=== PATIENT | female | born 1975 | race Hispanic/Latino ===

== ENCOUNTER → 2019-03-03 | Day surgery (SDC) | payer OTHER ==
[2019-02-28 18:28] LABS: BASOPHILS # (AUTO) 0.1 (0.0-0.1); BASOPHILS % 0.8 % (0.0-1.0); EOSINOPHILS # (AUTO) 0.2 (0.0-0.4); EOSINOPHILS % 2.8 % (0.0-6.0); HEMATOCRIT 38.8 % (34.2-44.1); LYMPHOCYTES # (AUTO) 1.1 (1.0-3.2); LYMPHOCYTES % 16.9 % (18.0-39.1); MEAN CORPUSCULAR HEMOGLOBIN 29.9 pg (28-32); MEAN CORPUSCULAR HGB CONC 33.5 g/dL (31-35); MEAN CORPUSCULAR VOLUME 89.2 fL (81-99); MONOCYTES # (AUTO) 0.3 (0.2-0.8); MONOCYTES % 5.1 % (4.4-11.3); NEUTROPHILS # (AUTO) 4.8 (2.1-6.9); NEUTROPHILS % 73.9 % (38.7-80.0); PLATELET COUNT 221 x10e3/uL (140-360); RED BLOOD COUNT 4.35 x10e6/uL (3.6-5.1); RED CELL DISTRIBUTION WIDTH 12.7 % (11.7-14.4)
--- NOTE | 2019-02-28 18:30 | Diagnostic Imaging Report ---
EXAMINATION: CHEST 2 VIEWS INDICATION: Pre-op. COMPARISON: None FINDINGS: TUBES and LINES: None. LUNGS: Lungs are well inflated. There is no evidence of pneumonia or pulmonary edema. Mild patchy opacity in the medial aspect of the right lower lung, likely atelectasis. PLEURA: No pleural effusion or pneumothorax. HEART AND MEDIASTINUM: The cardiomediastinal silhouette is unremarkable. BONES AND SOFT TISSUES: No acute osseous abnormality. UPPER ABDOMEN: No free air under the diaphragm. IMPRESSION: No acute radiographic abnormality. Signed by: Dr. Nish Feldman MD on 02/28/2019 6:26 PM
[2019-02-28 18:45] LABS: ANION GAP 13.9 mmol/L (8-16); BLOOD UREA NITROGEN 15 mg/dL (7-26); BUN/CREATININE RATIO 20 (6-25); CALCIUM 9.6 mg/dL (8.4-10.2); CARBON DIOXIDE 26 mmol/L (22-29); CHLORIDE 101 mmol/L (98-107); CREATININE, SERUM 0.76 mg/dL (0.57-1.11); EST GLOMERULAR FILTRATION RATE > 60 ML/MIN (60-); GLUCOSE 95 mg/dL (74-118); POTASSIUM 3.9 mmol/L (3.5-5.1); SODIUM 137 mmol/L (136-145)
[~2019-03-03] MED LIST: ACETAMINOPHEN 1000 MG/100 ML 100 ML IV ONE; BACITRACIN 50,000 UNIT VIAL ONE; BUPIVACAINE HCL 0.5% INJ 30 ML VIAL INJ ONE; CEFAZOLIN SOD 1 GM VIAL ONE; DEXAMETHASONE SOD PHOS INJ 4 MG/ML VIAL ONE; FENTANYL CITRATE/PF 100MCG/2 ML INJ ONE; HYDROMORPHONE 2MG/ML 2 MG/ML ML ONE; IRON PO; KETOROLAC TROMETHAMINE 30 MG/ML VIAL ONE; LEVOTHYROXINE50 MCG PO; LIDOCAINE HCL 2% LOCAL INJ 5 ML SDV VIAL INJ ONE; MELATONIN3 MG PO; MIDAZOLAM HCL 2 MG/2 ML VIAL ONE; MORPHINE SULFATE INJ 4 MG/ML INJ 1ML ONE; NEOSTIGMINE 1 MG/ML 10ML VIAL ONE; ONDANSETRON HCL INJ 2MG/ML 2ML 2 MG/ML VIAL ONE; PROPOFOL IV EMULSION 10 MG/ML 20 ML VIAL ONE; SERTRALINE HCL100 MG PO; SEVOFLURANE INHAL SOLN 250 ML PEN BTL ONE; TAMOXIFEN CITRA10 MG PO; ULTRAM50 MG PO; VITAMIN D35000 UNIT PO
--- OUTSIDE RECORDS SUMMARY | 2019-03-03 07:27 | XMS REPORT ---
Author [facility] Address Unknown Phone Unavailable Care Team Providers Care Database Admin Name Role Phone LIOR CASTAÑEDA Unavailable Unavailable Payers Payer Name Policy Type Policy Number Effective Date Expiration Date Problems This patient has no known problems. Allergies, Adverse Reactions, Alerts Allergy Name Allergy Type Status Severity Reaction(s) Onset Date Inactive Date Treating Clinician Comments No Known Allergies DA Active U 2019-02-23 00:00:00 No Known Allergies DA Active U 2016-02-07 00:00:00 Medications This patient has no known medications. Results Test Description Test Time Test Comments Text Results Atomic Results Result Comments CHEST 2 VIEWS 2019-02-28 18:24:00 [place] [address] Patient Name: HADLEY RUBIO MR #: [id number] : 1975 Age/Sex: 43/F Req #: [id number] Adm Physician: Ordered by: LIOR CASTAÑEDA DPMinoo Report #: [id number] Location: OR Room/Bed: Procedure: [id number] DX/CHEST 2 VIEWS Exam Date: 02/28/19 Exam Time: 1635 REPORT STATUS: Signed EXAMINATION: CHEST 2 VIEWS INDICATION: Pre-op. COMPARISON: None FINDINGS: TUBES and LINES: None. LUNGS: Lungs are well inflated. There is no evidence of pneumonia or pulmonary edema. Mild patchy opacity in the medial aspect of the right lower lung, likely atelectasis. PLEURA: No pleural effusion or pneumothorax. HEART AND MEDIASTINUM: The cardiomediastinal silhouette is unremarkable. BONES AND SOFT TISSUES: No acute osseous abnormality. UPPER ABDOMEN: No free air under the diaphragm. IMPRESSION: No acute radiographic abnormality. Signed by: Dr. Camille Cruz MD on 02/28/2019 6:26 PM Dictated By: CAMILLE CRUZ MD 25 Transcribed By: JR on 02/28/191825 COPY TO: LIOR CASTAÑEDA DPM - XR ANKLE 3 + V LT 2019-02-23 03:15:00 FAX: Rush Edmondson [phone] [place]: St: REG FAX: Arturo Sotomayor NP [phone] FAX: Sukhwinder Malhotra MD [phone] Name: HADLEY RUBIO [facility] : 1975 Age/S: 43/F [address] [place] [address] Unit #: [id number] Loc: [place] [address] Phys: Arturo Sotomayor NP Acct: [id number] Dis Date: Status: REG ER PHONE #: [phone] Exam Date: 02/23/2019 0302 FAX #: [phone] Reason: Post reduction EXAMS: CPT CODE: [id number] XR ANKLE 3 + V LT 05489 Left ankle, 2 views dated 02/23/2019. HISTORY: Post reduction. AP and lateral views of the left ankle are correlated with the previous left ankle series dated 02/23/2019. The images were obtained through a splint, diminishing bone detail. Since the prior study there has been interval reduction of the talar dislocation. The fractures of the distal left fibular metaphysis and posterior left tibial malleolus remain mildly displaced however fracture alignment has significantly improved when compared to the preceding study. IMPRESSION: 1. Interval reduction of the fracture dislocation of the left ankle. SL: 131 at 0315 Reported and signed by: Chuy Garcia M.D. CC: SADE CASTANO M.D. ; Arutro Sotomayor NP; Sukhwinder Laureano MD Technologist: AGAPITO Farooq) Trnscrd Date/Time/By: 02/23/2019 (314) : By: SheliaM Orig Print D/T: S: 02/23/2019 (317) PAGE 1 Signed Report - XR ANKLE 3 + V LT 2019-02-23 01:54:00 FAX: Rush Edmondson [phone] [place]: St: REG FAX: Arturo Sotomayor NP [phone] Name: HADLEY RUBIO [facility] : 1975 Age/S: 43/F [address] [place] [address] Unit #: [id number] Loc: [place] [address] Phys: Arturo Sotomayor NP Acct: [id number] Dis Date: Status: REG ER PHONE #: [phone] Exam Date: 02/23/2019 0149 FAX #: [phone] Reason: Slip and fall, L ankle pain EXAMS: CPT CODE: [id number] XR ANKLE 3 + V LT 20033 Left ankle, 3 views dated 02/23/2019. HISTORY: Posttraumatic left ankle pain. Tripped going down the stairs. AP, lateral and oblique views of the left ankle demonstrate acute displaced fractures of the distal left fibular metaphysis and the posterior left tibial malleolus with dorsal dislocation of the talus. No acute fractures of the talus are identified. A large bone spur is noted calcaneal insertion the plantar fascia. No acute abnormalities of the calcaneus are stated talar joint are identified. IMPRESSION: 1. Acute fracture dislocation of the left ankle. SL: 131 Electronically Si gned by Klever Garcia on 02/23/2019 at 0154 Reported and signed by: Chuy Garcia M.D. CC: SADE CASTANO M.D. ; Arturo Sotomayor NP Technologist: RT Oseas(Natanael) Trnscrd Date/Time/By: 02/23/2019 (0154) : By: Marilee Orig Print D/T: S: 02/23/2019 (0157) PAGE 1 Signed Report
[2019-03-03 13:15] VITALS: BP 123/77
--- NOTE | 2019-03-04 02:09 | Operative Report ---
DATE OF PROCEDURE: 03/03/2019 SURGEON: Keon Bee DPM PREOPERATIVE DIAGNOSIS: Bimalleolar fracture of the left ankle, tibia and fibula. POSTOPERATIVE DIAGNOSIS: Bimalleolar fracture of the left ankle, tibia and fibula. TITLE OF OPERATION: Open reduction with internal fixation of the left ankle, tibia and fibula. ANESTHESIA: General endotracheal. HEMOSTASIS: A left thigh tourniquet at 350 mmHg to create hemostasis. PROCEDURE IN DETAIL: The patient was taken to the operating room in a mildly sedative state and placed on the operating table in supine position. Following induction of general anesthetic, left lower extremity was elevated to 60 degrees to exsanguinate before inflating the pneumatic tourniquet to 350 mmHg to create hemostasis. The left lower extremity was placed on the operating table prior to performing the following procedure. Procedure #1, open reduction and internal fixation of the left ankle and fibula with syndesmotic screw, both tibia and fibula. An approximate 6 cm lateral incision was placed along the lateral fibula. Care was taken to identify and retract all vital structures encountered. The neurovascular structures were identified and retracted from harm's way. The fractured fibula was noted to be in an oblique fashion just proximal to the talar dome and extending posteriorly along the posterior lateral aspect of the fibula approximately 4 cm. Posterior sag sign was noted. The ankle was very unstable and easily dislocatable do not only to the fibular fracture, but also fracture of the posterior malleolus of the tibia. Under fluoroscopy, the ankle was manipulated into its appropriate position. A clamp was used to reapproximate the longitudinal and transverse fracture of the fibula in a spiral oblique fashion. A lag screw was used for initial fixation and this was a 4-0 cancellous screw done under fluoroscopy as well. A long fibular plate was then applied to the lateral aspect of the fibula with 3 screws distal to the fracture and 4 screws proximal to the fracture. This having been accomplished, a fluoroscopic evaluation was performed, it was noted that not only did the fibula aligned well, but the posterior malleolus was in good position. Decision was made to fixate the tibia solidly as well. A separate stab incision was placed and the screw was placed through the plate from lateral to medial, grabbing the tibia bicortically. Posterior malleolus was noted to be properly positioned and adequately stable as well. The area was irrigated with copious amounts of sterile saline solution. The deep closure with 3-0 Vicryl, subcutaneous with 4-0 Vicryl and skin closed with 4-0nylon. When the ankle was put through its appropriate range of motion, it was noted that the syndesmosis between tibia and fibula were adequately reduced with the transmalleolar screw. Full ankle joint dorsiflexion was available and there were no complications, this was done with a nonlocking screw where as most of the screws were locking in nature. Posterior splint was applied and released the pneumatic thigh tourniquet, showed a normal hyperemic flush to all digits of the left foot. The patient left the operating room with vital signs stable in apparent satisfactory condition, having tolerated both anesthetic and procedure very well. SHANNON Duenas/ELBA /[id number]
== END | disposition home or self-care (01) ==
LOC: OR 07:19
PROVIDERS: ATTEND Podiatrist Foot Surgery
DX: S82.842A Displaced bimalleolar fracture of left lower leg, initial encounter for closed fracture (principal); C50.919 Malignant neoplasm of unspecified site of unspecified female breast; G47.33 Obstructive sleep apnea (adult) (pediatric); F32.9 Major depressive disorder, single episode, unspecified; F41.9 Anxiety disorder, unspecified; X58.XXXA Exposure to other specified factors, initial encounter; Z01.810 Encounter for preprocedural cardiovascular examination; Z01.812 Encounter for preprocedural laboratory examination; Z01.818 Encounter for other preprocedural examination
CPT/HCPCS: 27814; 36415; 71046; 80048; 84702; 85025; 93005; C1713 ×6; J0131; J0690; J1100; J1170; J1885; J2001; J2250; J2270; J2405; J2704; J2710

== ENCOUNTER → 2019-09-23 | Day surgery (SDC) | payer OTHER ==
[~2019-09-23] MED LIST changes: -ACETAMINOPHEN 1000 MG/100 ML 100 ML IV ONE; -BACITRACIN 50,000 UNIT VIAL ONE; -CEFAZOLIN SOD 1 GM VIAL ONE; +CEFAZOLIN SOD 1 GM/NS 50ML 100 ML IV ONE; -HYDROMORPHONE 2MG/ML 2 MG/ML ML ONE; -MORPHINE SULFATE INJ 4 MG/ML INJ 1ML ONE
[2019-09-23 15:05] VITALS: BP 107/71
--- NOTE | 2019-09-24 04:18 | Operative Report ---
DATE OF PROCEDURE: 09/23/2019 SURGEON: Keon Bee DPM ROOM NUMBER: [facility]. PREOPERATIVE DIAGNOSIS: Complication with hardware transmalleolar syndesmotic screw left foot. POSTOPERATIVE DIAGNOSIS: Complication with hardware transmalleolar syndesmotic screw left foot. TITLE OF OPERATION: Removal of the syndesmotic screw, left foot. PROCEDURE IN DETAILS: The syndesmotic screw was noted through the fibular fracture plate and into the tibia utilizing an appropriate [employer] instrument guide and under fluoroscopy, the head of the screw was identified. Stab incision was made and the screw was backed out. The area was irrigated with copious amounts of sterile saline solution, closed with 4-0 nylon. The area was blocked with 0.5 Marcaine, released the pneumatic thigh tourniquet, showed a normal hyperemic flush to all digits of left foot. The patient left the operating room with vital signs stable in apparent satisfactory condition having tolerated both anesthetic and procedure very well. Complication of the hardware and removal of hardware, both left foot. SHANNON Duenas/ELBA /[id number]
== END | disposition home or self-care (01) ==
LOC: OR 08:54
PROVIDERS: ATTEND Podiatrist Foot Surgery
DX: T84.498A Other mechanical complication of other internal orthopedic devices, implants and grafts, initial encounter (principal); T84.84XA Pain due to internal orthopedic prosthetic devices, implants and grafts, initial encounter; Y83.8 Other surgical procedures as the cause of abnormal reaction of the patient, or of later complication, without mention of misadventure at the time of the procedure
CPT/HCPCS: 20680; 76000; J0690; J1100; J1885; J2001; J2250; J2405; J2704; J2710; J3010